=== PATIENT | male | born 1990 | race Two or more races ===

== ENCOUNTER 2016-12-01 23:10 | Emergency (ER) | payer OTHER ==
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
[~2016-12-01 23:10] MED LIST: ALBUTEROL17 GM INH; AMOXICILLIN PO; CIPRO PO; IBUPROFEN PO; IBUPROFEN800 MG PO; MOTRIN600 MG PO; NO MEDICATIONS; ORUDIS75 M1 PO; PREDNISONE PO
== END 2016-12-02 | disposition home or self-care (01) ==
LOC: CFTX 23:10
DX: S46.911A Strain of unspecified muscle, fascia and tendon at shoulder and upper arm level, right arm, initial encounter (principal); W23.0XXA Caught, crushed, jammed, or pinched between moving objects, initial encounter; Y92.009 Unspecified place in unspecified non-institutional (private) residence as the place of occurrence of the external cause
CPT/HCPCS: 73030; 99283; J1885